=== PATIENT | male | born 1980 | race Caucasian/White ===

== ENCOUNTER 2017-03-11 11:31 | Outpatient (CLI) | payer OTHER ==
[2017-03-11 19:19] LABS: ALBUMIN/GLOBULIN RATIO 1.7 (1.0-2.2); BILIRUBIN,TOTAL 0.9 mg/dL (0.2-1.0); BUN - BLOOD UREA NITROGEN 16 mg/dL (6-20); CALCIUM 9.5 mg/dL (8.5-10.3); CARBON DIOXIDE - CO2 30 mmol/L (21-32); CHLORIDE 102 mmol/L (101-111); CHOL/HDL RATIO 2.9 (<5.0); CHOLESTEROL 205 mg/dL; CREATININE 1.1 mg/dL (0.6-1.2); GFR - MDRD 75 (>89); GLUCOSE 101 mg/dL (70-100); HDL CHOLESTEROL 71 mg/dL; LDL/HDL RATIO 1.6 (<3.6); SODIUM 139 mmol/L (135-145); TOTAL PROTEIN 7.5 g/dL (6.7-8.2); TRIGLYCERIDES 83 mg/dL; VLDL CHOLESTEROL 17 mg/dL
== END 2017-03-11 11:32 | disposition home or self-care (01) ==
LOC: LAB.F 11:31
PROVIDERS: ATTEND Internal Medicine
DX: R94.5 Abnormal results of liver function studies (principal); E78.00 Pure hypercholesterolemia, unspecified
CPT/HCPCS: 36415; 80053; 80061

== ENCOUNTER 2017-11-07 14:31 | Emergency (ER) | payer OTHER ==
[2017-11-07 14:58] VITALS: BP 104/53
[2017-11-07] MEDS ORDERED: BACITRACIN OINT TOP STA (15:41)
--- NOTE | 2017-11-07 15:42 | ED Physician Documentation ---
History of Present Illness - Stated complaint Stated Complaint: R THIGH LAC - Chief complaint Chief Complaint: Laceration - History obtained from History obtained from: Patient, Family - History of Present Illness Timing: Today, How many hours ago (1) Pain level max: 3 Pain level now: 2 Improved by: nothing Worsened by: nothing - Additonal information Additional information: Patient was cutting PVC pipe when the blade slipped and lacerated the right thigh, small laceration but has continued to bleed so came in for evaluation. Tetanus is up-to-date. Review of Systems Neurologic: denies: Focal weakness, Numbness PD PAST MEDICAL HISTORY - Past Medical History Past Medical History: No - Past Surgical History Past Surgical History: No - Present Medications Home Medications: Ambulatory Orders Medication Instructions Recorded Confirmed Amoxicillin 1 tab PO DAILY 11/07/17 11/07/17 - Allergies Allergies/Adverse Reactions: Allergies Allergy/AdvReac Type Severity Reaction Status Date / Time No Known Drug Allergies Allergy Verified 11/07/17 14:57 - Social History Does the pt smoke?: No Smoking Status: Former smoker Does the pt drink ETOH?: Yes ETOH Use: Beer Does the pt have substance abuse?: No - Immunizations Immunizations are current?: Yes Immunizations: TDAP current <10years - POLST Patient has POLST: No PD ED PE NORMAL - Vitals Vital signs reviewed: Yes - General General: Alert and oriented X 3, No acute distress - Extremities Extremities: Other (R thigh 0.5cm linear laceration, distal thigh. does not involve the knee joint or tendons. ) - Neuro Neuro: Alert and oriented X 3 Results - Vitals Vitals: Vital Signs - 24 hr 11/07/17 14:54 Temperature 36.2 C L Heart Rate 64 Respiratory 16 Rate Blood Pressure 104/53 L O2 Saturation 97 Oxygen O2 Source Room air Procedures - Laceration (location) R thigh Length in cm: 0.5 Wound type: Linear, Into subcut fat, Clean Neurovascular status: Sensory intact, Motor intact, Vascular intact Tendon involvement: Tendon intact. No: Tendon Injury Wound Preparation: Irrigated copiously NS, Wound explored, To the base. No: FB identified, FB removed Skin layer closure: Jhoana (2) Other: Patient tolerated well, No complications, Neurovascular intact, Dressing applied, Tetanus UTD Complexity: Simple PD MEDICAL DECISION MAKING - ED course Complexity details: considered differential, d/w patient, d/w family ED course: Patient is a 36-year-old male presents to the emergency department with a right thigh laceration. This was repaired. Tolerated well. Warnings of infection and instructions on wound care given at bedside. Also counseled on how to minimize scarring. Patient counseled regarding signs and symptoms for which I believe and urgent re-evaluation would be necessary. Patient with good understanding of and agreement to plan and is comfortable going home at this time This document was made in part using voice recognition software. While efforts are made to proofread this document, sound alike and grammatical errors may occur. Departure - Departure Disposition: Home, Self Care Clinical Impression: Thigh laceration Qualifiers: Encounter type: initial encounter Laterality: right Qualified Code(s): S71.111A - Laceration without foreign body, right thigh, initial encounter Condition: Good Instructions: ED Laceration Ext Sutr Stap Tape Follow-Up: your,doctor in 10-14 days for staple removal. [Other] Comments: Return if you worsen. Apply antibiotic ointment twice daily. Return especially for redness, swelling or drainage from the wound. The jhoana should be removed with your doctor in 10-14 days Forms: Activity restrictions Discharge Date/Time: 11/07/17 15:53
== END 2017-11-07 15:53 | disposition home or self-care (01) ==
LOC: ED 14:31
DX: Z87.891 Personal history of nicotine dependence (principal); S71.111A Laceration without foreign body, right thigh, initial encounter; W27.0XXA Contact with workbench tool, initial encounter
CPT/HCPCS: 12001; 99282; 99283; A9270

== ENCOUNTER 2018-08-23 09:11 | Outpatient (CLI) | payer OTHER ==
--- NOTE | 2018-08-23 11:35 | XRAY Report ---
Reason: OTHER DISORDERS OF LUNG,UNSPECIFIED ABDOMINAL PAIN Procedure Date: 08/23/2018 Accession Number: [id number] / [id number] Procedure: XR - Chest 2 View X-Ray CPT Code: 40226 FULL RESULT: EXAM: CHEST RADIOGRAPHY EXAM DATE: 08/23/2018 09:22 AM. CLINICAL HISTORY: Other disorders of lung, unspecified abdominal pain. COMPARISON: None. TECHNIQUE: 2 views. FINDINGS: Lungs/Pleura: No focal opacities evident. No pleural effusion. No pneumothorax. Normal volumes. Mediastinum: Heart and mediastinal contours are unremarkable. Other: None. IMPRESSION: Normal 2-view chest radiography. [facility]
== END 2018-08-23 09:12 | disposition home or self-care (01) ==
LOC: DI 09:11
PROVIDERS: ATTEND Specialist
DX: J98.4 Other disorders of lung (principal); R10.9 Unspecified abdominal pain
CPT/HCPCS: 71046

== ENCOUNTER 2020-04-06 13:52 | Outpatient (CLI) | payer OTHER ==
--- NOTE | 2020-04-06 16:26 | XRAY Report ---
PROCEDURE: Knee 3 View BILAT INDICATIONS: KNEE PAIN TECHNIQUE: 3 views of the bilateral knee(s) were acquired. COMPARISON: None. FINDINGS: Bones: No fractures or dislocations. No suspicious bony lesions. No appreciable degenerative babb e. No erosions are identified. Soft tissues: Mild to moderate bilateral effusions. No suspicious soft tissue calcifications. IMPRESSION: Mild to moderate bilateral effusions. No visualized acute fracture or dislocation. Howev er, occult injury cannot be excluded. Recommend short interval imaging follow-up in 7-10 days as clin ically indicated for additional evaluation. Reviewed by: Bridget Perez MD on 04/06/2020 4:25 PM PDT Approved by: Bridget Perez MD on 04/06/2020 4:25 PM PDT Station ID: [id number]
== END 2020-04-06 13:53 | disposition home or self-care (01) ==
LOC: DI 13:52
PROVIDERS: ATTEND Physician Assistant Medical
DX: M25.462 Effusion, left knee (principal); M25.461 Effusion, right knee

== ENCOUNTER 2020-07-10 20:32 | Outpatient (CLI) | payer OTHER | END 2020-07-10 20:33 | disposition home or self-care (01) | LOC: COV 20:32 | PROVIDERS: ATTEND Family Medicine | DX: Z20.828 Contact with and (suspected) exposure to other viral communicable diseases (principal) ==

== ENCOUNTER 2020-08-13 17:11 | Outpatient (CLI) | payer OTHER | END 2020-08-13 17:12 | disposition home or self-care (01) | LOC: COV 17:11 | PROVIDERS: ATTEND Family Medicine | DX: R05 Cough (principal); Z20.822 Contact with and (suspected) exposure to COVID-19; R53.83 Other fatigue; J02.9 Acute pharyngitis, unspecified; R19.7 Diarrhea, unspecified; R11.0 Nausea; R09.81 Nasal congestion ==

== ENCOUNTER 2021-03-07 14:08 | Emergency (ER) | payer OTHER ==
[2021-03-07 14:33] VITALS: BP 125/81
--- NOTE | 2021-03-07 15:31 | ED Physician Documentation ---
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 2 days ago he was under a fire truck for about 3 hours working on it. Did not really have any pain then but subsequently that evening and over the course of the next 24 hours developed severe neck pain. Yesterday he could not really move his neck at all. Today the range of motion is better but he still has severe pain with certain movements and with swallowing in the lower posterior cervical spine. Review of Systems Constitutional: reports: Reviewed and negative Eyes: reports: Reviewed and negative Ears: reports: Reviewed and negative Nose: reports: Reviewed and negative PD PAST MEDICAL HISTORY - Past Surgical History Past Surgical History: No - Present Medications Home Medications: Ambulatory Orders Medication Instructions Recorded Confirmed Amoxicillin 1 tab PO DAILY 11/07/17 11/07/17 Cyclobenzaprine [Flexeril] 10 mg PO TID PRN #20 tablet 03/07/21 HYDROcod/ACETAM 5/325 [[place] 5/325] 1 - 2 tab PO Q6H PRN #15 tablet 03/07/21 - Allergies Allergies/Adverse Reactions: Allergies Allergy/AdvReac Type Severity Reaction Status Date / Time No Known Drug Allergies Allergy Verified 03/07/21 14:33 - Social History Does the pt smoke?: No Smoking Status: Former smoker Does the pt drink ETOH?: Yes Does the pt have substance abuse?: No - Immunizations Immunizations are current?: Yes Immunizations: TDAP current <10years - POLST Patient has POLST: No PD ED PE NORMAL - Vitals Vital signs reviewed: Yes - General General: Alert and oriented X 3, No acute distress - HEENT HEENT: PERRL, EOMI - Neck Neck: Other (Mild tenderness of the lower mid cervical spine, no deformity. No muscular tenderness except for some mild tenderness of the left sternocleidomastoid.) - Neuro Neuro: Alert and oriented X 3, bank consultant 2-12 intact, No motor deficit, No sensory deficit, Normal speech Results - Vitals Vitals: Vital Signs - 24 hr 03/07/21 14:28 Temperature 36.7 C Heart Rate 70 Respiratory 12 Rate Blood Pressure 125/81 H O2 Saturation 100 Oxygen O2 Source Room air PD MEDICAL DECISION MAKING - ED course ED course: Really no mechanism for injury but requesting imaging. C5 calcification noted, too small to tell if it is new or old. Given its size though probably does not need any specific intervention. He declined a c-collar. Departure - Departure Disposition: 01 Home, Self Care Clinical Impression: Neck strain Qualifiers: Encounter type: initial encounter Qualified Code(s): S16.1XXA - Strain of muscle, fascia and tendon at neck level, initial encounter Condition: Good Record reviewed to determine appropriate education?: Yes Instructions: ED Spasm Neck No Injury Prescriptions: Cyclobenzaprine [Flexeril] 10 mg PO TID PRN #20 tablet PRN Reason: Spasms HYDROcod/ACETAM 5/325 [[place] 5/325] 1 - 2 tab PO Q6H PRN #15 tablet PRN Reason: Pain Comments: As discussed, you do have a tiny little chip near your fifth cervical vertebrae, it is so small it is hard to tell whether this is new or old. I am prescribing a short course of narcotic pain medication for you. These are potentially dangerous and addictive medications that should be used carefully. These medications may constipate you. Take an zquo-wak-zlnoasi stool softener (docusate) twice daily with plenty of water while taking these medications. If you go 24 hours without a bowel movement, take knoj-rtn-nahycsv miralax, per package instructions. Do not drink or drive while taking these medications. If you received narcotic or sedating medications while in the emergency dep artment, do not drive for 24 hours. Store this medication in a safe, secure place and out of reach of children. It is a violation of federal law to give or sell this medication to another person or to use in a manner other than prescribed. The ED will not refill narcotic prescriptions, including prescriptions lost or stolen. To dispose of unwanted medications: 1. [facility] [address] in [place] has a medication drop box. They accept prescription medications (in pill form) Thursday through Thursday 9:00 a.m. to 5:00 p.m. 2. The [facility] at [place] [employer] accepts prescription medications (in pill form only) for disposal year round. Call for more information. 3. Contact the [facility] for the next [facility] sponsored prescription drug collection event. , [phone], or [phone]; Note that many narcotic pain relievers also contain Tylenol/acetaminophen. Please ensure that your total dose of acetaminophen from all sources does not exceed 3 g (3000 mg) per day. Discharge Date/Time: 03/07/21 17:27
--- NOTE | 2021-03-07 17:15 | CT Report ---
PROCEDURE: CERVICAL SPINE WO INDICATIONS: NECK INJ TECHNIQUE: Noncontrast 3 mm thick sections acquired from the skull base to the T4 level. Sagittal and coronal r eformats were then constructed. For radiation dose reduction, the following was used: automated exp osure control, adjustment of mA and/or kV according to patient size. COMPARISON: None. FINDINGS: Image quality: Excellent. Bones: Along the anterior inferior aspect of the C5 vertebral body, there is a tiny 1 mm bone fragme nt seen, as on series 7 image 40. No additional focal bony abnormalities can be seen. No dislocations. Visualized superior ribs are in tact. An apparent bone island can be seen within the anterior left aspect of the C4 vertebral body. Soft tissues: Prevertebral soft tissues are normal in thickness. No paravertebral hematomas. No ap ical pneumothoraces. IMPRESSION: 1 mm fragment seen involving the anterior inferior aspect of the C5 vertebral body, which is attribut ed to a fragmented osteophyte. Please correlate with the patient's symptoms and mechanism of injury. Reviewed by: Antonio Huber MD on 03/07/2021 4:14 PM DIANE Approved by: Antonio Huber MD on 03/07/2021 4:14 PM DIANE Station ID: [id number]
== END 2021-03-07 17:27 | disposition home or self-care (01) ==
LOC: ED 14:08
DX: S16.1XXA Strain of muscle, fascia and tendon at neck level, initial encounter (principal); X50.1XXA Overexertion from prolonged static or awkward postures, initial encounter; Y93.89 Activity, other specified; Y92.89 Other specified places as the place of occurrence of the external cause; Y99.0 Civilian activity done for income or pay; Z87.891 Personal history of nicotine dependence
CPT/HCPCS: 1040M; 72125; 99283; 99284

== ENCOUNTER 2022-05-07 09:02 | Outpatient (CLI) | payer OTHER ==
--- NOTE | 2022-05-07 14:45 | CT Report ---
PROCEDURE: CT head without contrast INDICATIONS: HEADACHE, SOB TECHNIQUE: Noncontrast 4.5 mm thick angled axial sections acquired from the foramen magnum to the vertex. For r adiation dose reduction, the following was used: automated exposure control, adjustment of mA and/or kV according to patient size. COMPARISON: None. FINDINGS: Image quality: Excellent. CSF spaces: Basal cisterns are patent. No extra-axial fluid collections. Ventricles are normal in size and shape. Brain: No midline shift. No intracranial masses or hemorrhage. Nicole-white matter interface is norm al. Skull and face: Calvarium and visualized facial bones are intact, without suspicious lesions. Sinuses: Visualized sinuses and mastoids are clear. IMPRESSION: Normal CT brain Reviewed by: Isael Candelario MD on 05/07/2022 1:44 PM AKSHONNA Approved by: Isael Candelario MD on 05/07/2022 1:44 PM AKSHONNA Station ID: [id number]
--- NOTE | 2022-05-07 15:01 | XRAY Report ---
PROCEDURE: Chest 2 View X-Ray INDICATIONS: HEADACHE, SOB TECHNIQUE: 2 view(s) of the chest. COMPARISON: Chest x-ray, . FINDINGS: Surgical changes and devices: None. Lungs and pleura: No pleural effusions or pneumothorax. Lungs are clear. Mediastinum: Mediastinal contours are normal. Heart size is normal. Bones and chest wall: No suspicious bony abnormalities. Soft tissues appear unremarkable. IMPRESSION: No acute cardiopulmonary disease Reviewed by: Savanah Cervantes MD on 05/07/2022 3:00 PM PDT Approved by: Savanah Cervantes MD on 05/07/2022 3:00 PM PDT Station ID: [id number]
== END 2022-05-07 09:03 | disposition home or self-care (01) ==
LOC: DI 09:02
PROVIDERS: ATTEND Physician Assistant
DX: R51.9 Headache, unspecified (principal); R06.02 Shortness of breath

== ENCOUNTER 2023-07-23 11:56 | Outpatient (CLI) | payer OTHER ==
--- NOTE | 2023-07-23 16:07 | XRAY Report ---
PROCEDURE: Cervical Spine 2-3V INDICATIONS: MIDLINE NECK PAIN TECHNIQUE: 3 views of the cervical spine were acquired. COMPARISON: Cervical spine CT 03/07/2021 FINDINGS: Bones: No acute fractures or dislocations to the C7 level. Tiny 1 mm ossification again seen along t he anterior-inferior endplate of C5 vertebral body, unchanged compared to the CT from 03/07/2021. The lateral masses of C1 appear intact on the odontoid view. No suspicious bony lesions. Mild degenerat gaby endplate changes are seen at the C5-6 disc space level. Soft tissues: No prevertebral soft tissue swelling. IMPRESSION: No acute osseous abnormality. Minimal spondylosis. Reviewed by: Jcarlos Pérez MD on 07/23/2023 4:06 PM PST Approved by: Jcarlos Pérez MD on 07/23/2023 4:06 PM PST Station ID: [id number]
--- NOTE | 2023-07-23 16:10 | XRAY Report ---
PROCEDURE: Thoracic Spine 2 View INDICATIONS: MIDLINE NECK PAIN TECHNIQUE: 2 views of the thoracic spine were acquired. COMPARISON: None. FINDINGS: Bones: No acute fractures or dislocations. No suspicious bony lesions. 12 pairs of ribs are noted, and appear intact where visualized. Soft tissues: No paravertebral stripe thickening. IMPRESSION: No acute bony abnormality. No significant degenerative change. Reviewed by: Jcarlos Pérez MD on 07/23/2023 4:09 PM [facility] Approved by: Jcarlos Pérez MD on 07/23/2023 4:09 PM [facility] Station ID: [id number]
== END 2023-07-23 11:57 | disposition home or self-care (01) ==
LOC: DI 11:56
PROVIDERS: ATTEND Student in an Organized Health Care Education/Training Program
DX: M47.812 Spondylosis without myelopathy or radiculopathy, cervical region (principal)

== ENCOUNTER 2023-12-02 15:44 | Outpatient (CLI) | payer OTHER ==
--- NOTE | 2023-12-02 21:20 | XRAY Report ---
PROCEDURE: Chest 2V INDICATIONS: DYSPNEA TECHNIQUE: 2 views of the chest were acquired. COMPARISON: Chest x-ray 08/23/2018 FINDINGS: Surgical changes and devices: None. Lungs and pleura: No pleural effusions or pneumothorax. Lungs are clear. Mediastinum: Mediastinal contours appear normal. Heart size is normal. Bones and chest wall: No suspicious bony lesions. Overlying soft tissues appear unremarkable. IMPRESSION: No acute cardiopulmonary process. Reviewed by: Bridget Perez MD on 12/02/2023 9:18 PM PDT Approved by: Bridget Perez MD on 12/02/2023 9:18 PM PDT Station ID: [id number]
== END 2023-12-02 15:45 | disposition home or self-care (01) ==
LOC: DI 15:44
PROVIDERS: ATTEND Physician Assistant
DX: R06.09 Other forms of dyspnea (principal)

== ENCOUNTER 2023-12-22 14:45 | Outpatient (CLI) | payer OTHER ==
[2023-12-22] MEDS: ALBUTEROL 1 PUFF INH STA (17:31)
== END 2023-12-22 14:46 | disposition home or self-care (01) ==
LOC: RT 14:45
PROVIDERS: ATTEND Physician Assistant
DX: R06.09 Other forms of dyspnea (principal)
CPT/HCPCS: 94060; 94727; 94729